=== PATIENT | male | born 1970 | race Caucasian/White ===

== ENCOUNTER 2017-03-10 15:54 | Emergency (ER) | payer BC ==
[2017-03-10 16:01] VITALS: BP 141/81
--- NOTE | 2017-03-10 16:23 | UC ---
Respiratory Complaint HPI - HPI Summary HPI Summary: increaed cough over the last few days. no fever or other symtpoms, does have seasonal allergies this time of year and has been taking claritin - History of Current Complaint Chief Complaint: UCRespiratory Stated Complaint: COUGH Time Seen by Provider: 03/10/17 16:20 Hx Obtained From: Patient Onset/Duration: Sudden Onset, Lasting Days Timing: Constant Severity Initially: Mild Severity Currently: Moderate Character: Cough: Nonproductive Aggravating Factors: Allergens, Exertion, Deep Breaths Alleviating Factors: Nothing Associated Signs And Symptoms: Positive: Wheezing - Allergies/Home Medications Allergies/Adverse Reactions: Allergies Allergy/AdvReac Type Severity Reaction Status Date / Time No Known Allergies Allergy Verified 03/10/17 16:00 Home Medications: Home Medications Loratadine [Claritin 10 MG CAP] 10 mg PO DAILY 03/10/17 [History Confirmed 03/10] PMH/Surg Hx/FS Hx/Imm Hx Previously Healthy: Yes - Surgical History Surgical History: None - Family History Known Family History: Positive: Cardiac Disease, Hypertension, Diabetes - Social History Alcohol Use: None Substance Use Type: None Smoking Status (MU): Never Smoked Tobacco Have You Smoked in the Last Year: No - Immunization History Most Recent Influenza Vaccination: no Review of Systems Constitutional: Negative Skin: Negative Eyes: Negative ENT: Negative Respiratory: Shortness Of Breath, Cough Cardiovascular: Negative Gastrointestinal: Negative Genitourinary: Negative Motor: Negative Neurovascular: Negative Musculoskeletal: Negative Neurological: Negative Psychological: Negative Is Patient Immunocompromised?: No All Other Systems Reviewed And Are Negative: Yes Physical Exam Triage Information Reviewed: Yes Appearance: Well-Appearing, Well-Nourished, Pain Distress Vital Signs: Initial Vital Signs Temp 98.9 F 03/10/17 15:57 Pulse 56 03/10/17 15:57 Resp 18 03/10/17 15:57 BP 141/81 03/10/17 15:57 Pulse Ox 97 03/10/17 15:57 Vital Signs Reviewed: Yes Eye Exam: Normal Eyes: Positive: Conjunctiva Clear ENT: Positive: Hearing grossly normal, Pharynx normal, TMs normal Dental Exam: Normal Neck exam: Normal Neck: Positive: Supple, Nontender, No Lymphadenopathy Respiratory Exam: Normal Respiratory: Positive: Chest non-tender, Normal breath sounds, No respiratory distress, No accessory muscle use, Wheezing, Inspiration Cardiovascular Exam: Normal Cardiovascular: Positive: RRR, No Murmur, Pulses Normal Abdominal Exam: Normal Abdomen Description: Positive: Nontender, No Organomegaly, Soft Bowel Sounds: Positive: Present Musculoskeletal Exam: Normal Musculoskeletal: Positive: Strength Intact, ROM Intact, No Edema Neurological Exam: Normal Neurological: Positive: Alert, Muscle Tone Normal Psychological Exam: Normal Skin Exam: Normal UC Diagnostic Evaluation - Laboratory O2 Sat by Pulse Oximetry: 97 Respiratory Course/Dx - Course Course Of Treatment: hx obtained, exam performed ,meds reviewed, treated for bronchitis - Differential Dx/Diagnosis Differential Diagnosis/HQI/PQRI: Asthma, Bronchitis, Sinusitis Provider Diagnoses: Bronchitis. seasonal allergies Discharge - Discharge Plan Condition: Stable Disposition: HOME Prescriptions: Albuterol HFA INHALER* [Ventolin HFA Inhaler*] 2 puff INH Q4H PRN #1 mdi PRN Reason: Cough predniSONE TAB* [Deltasone TAB*] 40 mg PO DAILY #14 tab Patient Education Materials: Acute Bronchitis (ED) Referrals: Alta Powers MD [Primary Care Provider] - Additional Instructions: 1. continue with the claritin 2. Take the other medications as prescribed. 3. Increase your fluid intake and get rest.
== END 2017-03-10 16:28 | disposition home or self-care (01) ==
LOC: UCCORT 15:54
DX: J40 Bronchitis, not specified as acute or chronic (principal); J30.2 Other seasonal allergic rhinitis
CPT/HCPCS: 99212; G0463

== ENCOUNTER 2018-03-11 16:55 | Emergency (ER) | payer BC ==
[2018-03-11 17:57] VITALS: BP 135/86
--- NOTE | 2018-03-11 19:15 | UC ---
Back Pain HPI - HPI Summary HPI Summary: 47-year-old male presents with a three-week history of left lower back pain that started after exercising at gym. States pain was initially a throbbing but is become more dull. Occasionally has sharp shooting pains that radiate down his left leg to the level of the knee. Worsens with extended sitting or standing. Denies fevers, chills, rash, abdominal pain, flank pain, nausea, vomiting, dysuria, frequency, urgency, hematuria, numbness, tingling, weakness of lower extremity, or loss of bowel or bladder control. - History of Current Complaint Chief Complaint: UCBackPain Stated Complaint: LOWER LEFT BACK PAIN Time Seen by Provider: 03/11/18 18:26 Hx Obtained From: Patient Onset/Duration: Gradual Onset, Lasting Weeks - 3 Timing: Constant - dull ache left lower back, Intermittent - sharp shooting pain down left leg Severity Initially: Moderate Severity Currently: Moderate - Sharpshooting pain Pain Intensity: 7 Character: Dull Aggravating Factor(s): Walking, Other - sitting Alleviating Factor(s): Rest Associated Signs And Symptoms: Negative: Fever, Weakness, Numbness, Tingling, Abdominal Pain, Flank Pain, Bladder Incontinence, Bowel Incontinence - Allergies/Home Medications Allergies/Adverse Reactions: Allergies Allergy/AdvReac Type Severity Reaction Status Date / Time No Known Allergies Allergy Verified 03/11/18 17:48 PMH/Surg Hx/FS Hx/Imm Hx Previously Healthy: Yes - denies significant past medical history - Surgical History Surgical History: None - Family History Known Family History: Positive: Cardiac Disease, Hypertension, Diabetes - Social History Occupation: Employed Full-time Lives: With Family Alcohol Use: Occasionally Alcohol Amount: 1/week Substance Use Type: None Smoking Status (MU): Never Smoked Tobacco Have You Smoked in the Last Year: No - Immunization History Most Recent Influenza Vaccination: no Most Recent Tetanus Shot: UTD Review of Systems Constitutional: Negative Skin: Negative Respiratory: Negative Cardiovascular: Negative Gastrointestinal: Negative Genitourinary: Negative Motor: Negative Neurovascular: Negative Musculoskeletal: Other: - See history of present illness Neurological: Negative Is Patient Immunocompromised?: No All Other Systems Reviewed And Are Negative: Yes Physical Exam Triage Information Reviewed: Yes Appearance: Well-Appearing, No Pain Distress, Well-Nourished Vital Signs: Initial Vital Signs Temp 97.1 F 03/11/18 17:49 Pulse 64 03/11/18 17:49 Resp 16 03/11/18 17:49 BP 135/86 03/11/18 17:49 Pulse Ox 97 03/11/18 17:49 Vital Signs Reviewed: Yes Respiratory: Positive: Lungs clear, Normal breath sounds, No respiratory distress Cardiovascular: Positive: RRR, No Murmur Abdomen Description: Positive: Nontender, No Organomegaly, Soft. Negative: CVA Tenderness (R), CVA Tenderness (L) Bowel Sounds: Positive: Present Musculoskeletal: Positive: Strength Intact, Other: - Soft tissue tenderness left lumbar back. No tenderness over the spinous processes the lumbar back. Positive straight leg test left. Gait steady. Neurological: Positive: Alert, Muscle Tone Normal, Other: - Sensation intact Skin Exam: Normal Back Pain Course/Dx - Course Course Of Treatment: 47 year old male with 3 week history of left lower back pain with occasional radiation down left leg. Exam consistent with a LBP with radiculopathy left lower extremity. Recommend conservative treatment with NSAIDs , heat, and back exercises. Referral to PT provided. Patient verbalizes understanding and agrees with POC. - Differential Dx/Diagnosis Differential Diagnosis/HQI/PQRI: Herniated Disc, Strain Provider Diagnoses: left lower back pain with sciatica Discharge - Sign-Out/Discharge Documenting (check all that apply): Patient Departure All imaging exams completed and their final reports reviewed: No Studies - Discharge Plan Condition: Stable Disposition: HOME Prescriptions: Naproxen [Naproxen 500 mg tab] 500 mg PO BID #30 tablet. Patient Education Materials: Sciatica (ED), Lower Back Exercises (ED) Referrals: Alta Powers MD [Primary Care Provider] - 2 Weeks (If no improvement in symptoms.) Additional Instructions: Take naproxen 1 tablet twice a day with food for the next 7 days. After 7 days he may take 1 tablet twice a day as needed for pain. Continue use a heating pad to the affected area for 15-20 minutes 3-4 times a day. You been given some lower back exercises to use at home to help stretch and strength in the lower back. I also provided she with a referral to physical therapy for evaluation and treatment. Follow-up with your primary care provider in 2 weeks if symptoms do not improve. Seek immediate medical attention if he develops fever greater than 100.5 F, have severe abdominal pain, persistent vomiting, numbness, tingling, or weakness of your leg(s), or you lose control of her bowel or bladder. - Billing Disposition and Condition Condition: STABLE Disposition: Home
== END 2018-03-11 19:20 | disposition home or self-care (01) ==
LOC: UCCORT 16:55
DX: M54.32 Sciatica, left side (principal)
CPT/HCPCS: 99212; G0463

== ENCOUNTER 2019-04-25 07:02 | Emergency (ER) | payer BC ==
--- OUTSIDE RECORDS SUMMARY | 2019-04-25 07:11 | XMS REPORT | Continuity of Care Document ---
:1970 External Reference #:[id number] Author Name Alta Powers MD Address [address] [place] [id number] Problems Active Problems Provider Date Pure hypercholesterolemia Alta Powers MD Onset: 10/10/2005 Impaired fasting glycaemia Alta Powers MD Onset: 11/19/2018 Social History Type Date Description Comments Sex Unknown ETOH Use 04/14/2019 Occasionally consumes about 3 drinks per alcohol month Tobacco Use Start: Unknown Patient has never smoked Smoking Status Reviewed: 04/14/19 Patient has never smoked Allergies, Adverse Reactions, Alerts Description No Known Drug Allergies Medications Description No Active Medications Immunizations CPT Code Status Date Vaccine Reaction Lot # [id number] Given 04/02/2018 Flu Vaccine NOS 15777 Given 03/22/2017 Afluria Or Fluvirin Flu Vac Intramuscular 05235 Given 03/22/2012 Afluria Or Fluvirin Flu Vac Intramuscular 41212 Given 05/13/2011 Tdap (Adacel) Ages 7 And Above VIS DATE 05/09/08 Only Vital Signs Date Vital Result Comment 04/14/2019 8:37am Weight 178.00 lb Heart Rate 66 /min BP Systolic 120 mmHg BP Diastolic 80 mmHg Respiratory Rate 18 /min Height 65.5 inches 5'5.50" BMI (Body Mass Index) 29.2 kg/m2 11/19/2018 8:07am Weight 182.12 lb Heart Rate 68 /min BP Systolic 130 mmHg BP Diastolic 86 mmHg Respiratory Rate 18 /min Height 65.5 inches 5'5.50" SAFABIAN 11/19/18 BMI (Body Mass Index) 29.8 kg/m2 Results Test Date Facility Test Result H/L Range Note Lipid Treatment 04/08/2019 [facility] Cholesterol 251 mg/dL High 50-199 1 Triglycerides 149 mg/dL 30-200 HDL 40 mg/dL 29-71 2 Chol/ HDL Ratio 6.3 ratio 4.0-6.7 VLDL 30 mg/dL High 2-29 LDL (Calc) 181 mg/dL High 20-99 3 Alt 23 U/L 3-42 Ast 14 U/L 8-42 Basic (BMP) 04/08/2019 [facility] Sodium 139 mmol/L 135-146 4 Potassium 4.4 mmol/L 3.5-5.2 Chloride# 104 mmol/L 97-110 5 Carbon Dioxide 27 mmol/L 24-34 Glucose 99 mg/dL 70-105 BUN 19 mg/dL 6-26 Creatinine 1.0 mg/dL 0.5-1.4 Calcium 9.5 mg/dL 8.5-10.5 6 Female Egfr 64 >60 7 Male Egfr 85 >60 8 Anion Gap 8 mmol/L 5-15 9 Hemoglobin A1c 04/08/2019 [facility] Hemoglobin A1c 5.9 % 4.1-5.9 Estimated Average Glucose Calc 123 mg/dL 71-140 Laboratory test finding 11/12/2018 [facility] PSA 0.890 ng/mL 0.000-4.000 10, 11 CBC With Auto Diff 11/12/2018 [facility] WBC 4.9 K/uL 4.1-11.0 RBC 5.00 M/uL 4.60-6.10 Hemoglobin 14.3 gm/dL 13.5-18.0 Hematocrit 42.2 % 41.0-53.0 MCV 84.4 fL 80.0-97.0 MCH 28.6 pg 27.0-32.0 MCHC 33.9 g/dL 32.0-36.0 RDW 13.5 % 11.5-14.5 PLT Count 220 K/ul 140-400 MPV 7.8 FL 7.1-10.7 Neutrophil 52.5 % 35.0-75.0 Lymphocyte 39.6 % 16.0-52.0 Monocyte 5.6 % 2.0-10.0 Eosinophil 1.8 % 0.0-5.0 Basophil 0.5 % 0.0-4.0 Abs Neutrophils 2.6 K/uL 2.1-8.0 Abs Lymphocytes 1.9 K/uL 0.8-5.5 Abs Monocytes 0.3 K/uL 0.1-1.0 Abs Eosinophils 0.1 K/uL 0.0-0.5 Abs Basophils 0.0 K/uL 0.0-0.3 Comprehensive Metabolic (CMP) 11/12/2018 [facility] Sodium 144 mmol/L 135- 146 12 Potassium 4.3 mmol/L 3.5-5.2 Chloride# 106 mmol/L 97-110 13 Carbon Dioxide 28 mmol/L 24-34 Calcium 9.6 mg/dL 8.5-10.5 14 Glucose 109 mg/dL High 70-105 BUN 16 mg/dL 6-26 Creatinine 1.0 mg/dL 0.5-1.4 Total Protein 6.6 g/dL 6.0-8.0 Albumin 4.3 g/dL 3.6-4.9 Globulin 2.3 g/dL 2.0-3.5 A/G Ratio 1.9 Ratio 1.0-2.2 Total Bilirubin 0.5 mg/dL 0.1-1.3 Alkaline Phosphatase 49 U/L 24-140 Alt 25 U/L 3-42 Ast 15 U/L 8-42 Anion Gap 10 mmol/L 5-15 15 Female Egfr 68 >60 16 Male Egfr 91 >60 17 Laboratory test finding 11/12/2018 [facility] TSH 1.32 uIU/mL 0.35-4.94 Lipid 11/12/2018 [facility] Cholesterol 267 mg/dL High 50-199 Triglycerides 113 mg/dL 30-200 HDL 39 mg/dL 29-71 18 Chol/ HDL Ratio 6.9 ratio High 4.0-6.7 VLDL 23 mg/dL 2-29 LDL (Calc) 206 mg/dL High 20-99 19 1 3 mos 2 Per NCEP ATP III Guidelines: Results lower than 40 mg/dL are suggestive of increased risk for coronary artery disease. Results > or = to 60 mg/dL are considered a negative risk factor. 3 Per NCEP ATP III Guidelines: Normal Population <130 Patients with medical conditions: CHD/DM Optimal: <100 Borderline high: 130-159 High: 160-189 Very high: >189 4 Updated reference range on new analyzer 5 Updated reference range on new analyzer 6 Updated reference range 10-20-2018 7 Concerning GFR Guidelines for Americans: Normal function or mild renal disease, if clinically at risk: >/= 60 mL/min Moderately decreased: 30-59 Severely decreased: 15-29 Renal failure: <15 There is reduced accuracy above 60ml/min/1.73 m squared, but the numeric value may be clinically useful in the near 60 range 8 Concerning GFR Guidelines: Normal function or mild renal disease, if clinically at risk: >/= 60 mL/min Moderately decreased: 30-59 Severely decreased: 15-29 Renal failure: <15 There is reduced accuracy above 60ml/min/1.73 m squared, but the numeric value may be clinically useful in the near 60 range Glomerular Filtration Rate (GFR) is estimated based on the CKD-EPI equation, which assumes a steady state for creatinine as recommended by the National Kidney Disease Education Program in conjunction with the National Institutes of Health and the National Kidney Foundation. Clinical conditions in which it may be necessary to measure GFR by using clearance methods include extremes of age and body size, severe malnutrition or obesity, diseases of skeletal muscle, paraplegia or quadriplegia, vegetarian diet, rapidly changing kidney function, and calculation of the dose of potentially toxic drugs that are excreted by the kidneys. 9 Updated Reference Range 10 1 year 11 Beginning 08/17/06 PSA values assayed at [facility] uses chemiluminescence methodology manufactured by [employer] ([employer]) for use on the DXI analyzer. Values obtained with different assay methods or kits can not be used interchangeably. Serum PSA measurement is not an absolute test for malignancy. The PSA value should be used in conjunction with information available from clinical evaluation and other diagnostic procedures. 12 Updated reference range on new analyzer 13 Updated reference range on new analyzer 14 Updated reference range 10-20-2018 15 Updated Reference Range 16 Concerning GFR Guidelines for Americans: Normal function or mild renal disease, if clinically at risk: >/= 60 mL/min Moderately decreased: 30-59 Severely decreased: 15-29 Renal failure: <15 There is reduced accuracy above 60ml/min/1.73 m squared, but the numeric value may be clinically useful in the near 60 range 17 Concerning GFR Guidelines: Normal function or mild renal disease, if clinically at risk: >/= 60 mL/min Moderately decreased: 30-59 Severely decreased: 15-29 Renal failure: <15 There is reduced accuracy above 60ml/min/1.73 m squared, but the numeric value may be clinically useful in the near 60 range Glomerular Filtration Rate (GFR) is estimated based on the CKD-EPI equation, which assumes a steady state for creatinine as recommended by the National Kidney Disease Education Program in conjunction with the National Institutes of Health and the National Kidney Foundation. Clinical conditions in which it may be necessary to measure GFR by using clearance methods include extremes of age and body size, severe malnutrition or obesity, diseases of skeletal muscle, paraplegia or quadriplegia, vegetarian diet, rapidly changing kidney function, and calculation of the dose of potentially toxic drugs that are excreted by the kidneys. 18 Per NCEP ATP III Guidelines: Results lower than 40 mg/dL are suggestive of increased risk for coronary artery disease. Results > or = to 60 mg/dL are considered a negative risk factor. 19 Per NCEP ATP III Guidelines: Normal Population <130 Patients with medical conditions: CHD/DM Optimal: <100 Borderline high: 130-159 High: 160-189 Very high: >189 Procedures Date Code Description Status 06/22/2005 24259734 Colonoscopy Completed Medical Devices Description No Information Available Encounters Type Date Location Provider Dx Diagnosis Office Visit 11/19/2018 [facility] Alta Powers MD Z00.00 Encntr for general 8:15a adult medical exam w/o abnormal findings Z13.31 Encounter for screening for depression E78.00 Pure hypercholesterolemia, unspecified R73.01 Impaired fasting glucose Z68.29 Body mass index (BMI) 29.0-29.9, adult Assessments Date Code Description Provider 04/14/2019 E78.00 Pure hypercholesterolemia Alta Powers MD 04/14/2019 R73.01 Impaired fasting glucose Alta Powers MD 04/14/2019 Z12.11 Encounter for screening for malignant neoplasm Alta Powers MD of colon 04/14/2019 Z68.29 Body mass index (BMI) 29.0-29.9, adult Alta Powers MD 04/08/2019 E78.00 Pure hypercholesterolemia, unspecified Alta Powers MD 04/08/2019 E78.00 Pure hypercholesterolemia, unspecified Schedule, Laboratory 04/08/2019 R73.01 Impaired fasting glucose Alta Powers MD 04/08/2019 R73.01 Impaired fasting glucose Schedule, Laboratory 04/08/2019 E78.00 Pure hypercholesterolemia, unspecified [facility] 04/08/2019 R73.01 Impaired fasting glucose [facility] 11/19/2018 Z00.00 Encounter for general adult medical Alta Powers MD examination without abno 11/19/2018 Z13.31 Encounter for screening for depression Alta Powers MD 11/19/2018 E78.00 Pure hypercholesterolemia Alta Powers MD 11/19/2018 R73.01 Impaired fasting glucose Alta Powers MD 11/19/2018 Z68.29 Body mass index (BMI) 29.0-29.9, adult Alta Powers MD 11/12/2018 R39.11 Hesitancy of micturition Alta Powers MD 11/12/2018 R39.11 Hesitancy of micturition Schedule, Laboratory 11/12/2018 R03.0 Elevated blood-pressure reading, without Alta Powers MD diagnosis of hypertension 11/12/2018 R03.0 Elevated blood-pressure reading, w/o diagnosis Schedule, Laboratory of htn 11/12/2018 E78.00 Pure hypercholesterolemia, unspecified Alta Powers MD 11/12/2018 E78.00 Pure hypercholesterolemia, unspecified Schedule, Laboratory 11/12/2018 R39.11 Hesitancy of micturition [facility] 11/12/2018 R03.0 Elevated blood-pressure reading, w/o diagnosis [facility] of htn 11/12/2018 E78.00 Pure hypercholesterolemia, unspecified [facility] Plan of Treatment Future Appointment(s):11/25/2019 7:35 am - Schedule, Laboratory at [facility]2019 2:00 pm - Alta Powers MD at [facility]04/14/2019 - Alta Powers MDE78.00 Pure hypercholesterolemiaNew Labs:Lipid Treatment, Scheduled: 11/25/19Comments: Hyperlipidemia is diet controlled, improved but LDL is still elevated at 181. HDL is 40. suspect genetic predisposition to hyperlipidemia - discussed with patient . Liver enzymes are normal. keep working on healthy lifestyle - medication not needed yet.Follow up:After 11/19 for annual physical check labs prior.R73.01 Impaired fasting glucoseNew Labs:Basic (BMP), Scheduled: Hemoglobin A1c, Scheduled: 11/25/19Comments:He is in the prediabetic range. He has tendency to have an elevated blood sugar. HbA1c is at 5.9.He was educated about HbA1c range. Fasting blood sugar is 66. Kidney function is normal. Encouraged to continue to exercise daily and eat healthy diet. He was advised to cut back on sugar, flour, butter, fried foods, and fatty foods.Z12.11 Encounter for screening for malignant neoplasm of colonComments:We will order colonoscopy on this patient. The patient will be referred to Dr. Black as the patient is due for colonoscopy.Referral:Liborio Black, [id number] Body mass index (BMI) 29.0-29.9, adultComments:The BMI is the ratio between height and weight. Goal for a person under age 65 is between 18.5 and 25. You are overweight. Work on healthy lifestyle, with regular exercise (20 min daily will help) and eat a healthy diet. Formal diet plans work best. Functional Status Description No Information Available Mental Status Description No Information Available Referrals Refer to Reason for Referral Status Appt Date Liborio Black due for screening colonscopy Created [address] [place] [address] [phone]
[2019-04-25 07:15] VITALS: BP 133/85
--- NOTE | 2019-04-25 07:21 | UC ---
Skin Complaint HPI - HPI Summary HPI Summary: 49 yo healthy man, removed tick from right arm this morning. Was in the cool yesterday, tick could have been attached longer than 24 hours. No hx of Lyme disease. - History of Current Complaint Chief Complaint: UCSkin Time Seen by Provider: 04/25/19 07:15 Stated Complaint: RIGHT ARM SKIN - TICK BITE Hx Obtained From: Patient Onset/Duration: Sudden Onset, Lasting Hours Timing: Constant Onset Severity: Mild Current Severity: None Pain Intensity: 0 Location: Discrete Character: Redness - about 2.5 cm of eryhema at site. Alleviating Factor(s): Nothing Associated Signs & Symptoms: Positive: Negative Related History: Insect Bite/Sting - Allergy/Home Medications Allergies/Adverse Reactions: Allergies Allergy/AdvReac Type Severity Reaction Status Date / Time No Known Allergies Allergy Verified 04/25/19 07:12 Home Medications: Home Medications Loratadine [Claritin] 10 mg PO DAILY 04/25/19 [History Confirmed 04/25/19] PMH/Surg Hx/FS Hx/Imm Hx Previously Healthy: Yes - Surgical History Surgical History: None - Family History Known Family History: Positive: Cardiac Disease, Hypertension, Diabetes, Non- Contributory - Social History Occupation: Employed Full-time Lives: With Family Alcohol Use: Occasionally Alcohol Amount: 1/week Substance Use Type: None Smoking Status (MU): Never Smoked Tobacco Have You Smoked in the Last Year: No - Immunization History Most Recent Influenza Vaccination: no Most Recent Tetanus Shot: UTD Review of Systems All Other Systems Reviewed And Are Negative: Yes Constitutional: Positive: Negative Skin: Positive: Other - upper medial right arm--site of bite--with erythema ENT: Positive: Negative Respiratory: Positive: Negative Cardiovascular: Positive: Negative Motor: Positive: Negative Neurovascular: Positive: Negative Musculoskeletal: Positive: Negative Neurological: Positive: Negative Psychological: Positive: Negative Is Patient Immunocompromised?: No Physical Exam Triage Information Reviewed: Yes Appearance: Well-Appearing, No Pain Distress Vital Signs: Initial Vital Signs Temp 97.3 F 04/25/19 07:13 Pulse 66 04/25/19 07:13 Resp 16 04/25/19 07:13 BP 133/85 04/25/19 07:13 Pulse Ox 100 04/25/19 07:13 Vital Signs Reviewed: Yes Eye Exam: Normal ENT: Positive: Normal ENT inspection Respiratory Exam: Normal Respiratory: Positive: Lungs clear, Normal breath sounds Cardiovascular Exam: Normal Cardiovascular: Positive: RRR, No Murmur Skin Exam: Other - 3 cm erythema medial upper right arm just superior to the elbow. Course/Dx - Course Course Of Treatment: single dose doxycycline for prevention of Lyme disease. - Differential Diagnoses - Skin Complaint Differential Diagnoses: Other - tick bite - Diagnoses Provider Diagnosis: Tick bite Discharge ED - Sign-Out/Discharge Documenting (check all that apply): Patient Departure All imaging exams completed and their final reports reviewed: No Studies - Discharge Plan Condition: Good Disposition: HOME Prescriptions: DOXYcycline CAP(*) [DOXYcycline 100MG CAP(*)] 200 mg PO DAILY #2 cap Patient Education Materials: Tick Bite (ED) Referrals: Alta Powers MD [Primary Care Provider] - Additional Instructions: You have been prescribed a single dose of doxycycline for Lyme disease prevention. This can cause gut cramping and loose stools, but is usually well tolerated. In the next weeks, monitor for rash, fever and joint pains which are sings of early Lyme disease. - Billing Disposition and Condition Condition: GOOD Disposition: Home
== END 2019-04-25 07:31 | disposition home or self-care (01) ==
LOC: UCCORT 07:02
DX: S40.861A Insect bite (nonvenomous) of right upper arm, initial encounter (principal); W57.XXXA Bitten or stung by nonvenomous insect and other nonvenomous arthropods, initial encounter; Y92.9 Unspecified place or not applicable
CPT/HCPCS: 99212; G0463

== ENCOUNTER 2019-08-20 17:35 | Emergency (ER) | payer BC ==
--- NOTE | 2019-08-20 18:10 | UC ---
Respiratory Complaint HPI - HPI Summary HPI Summary: COUGH: X2WKS NONPRODUCTIVE. NO SICK CONTACTS. denies fever or sob. LOWER BACK: denies injury. occured 3 wks. ago and has tried heat, ice, stretching w/ no relief. denies tingling/numbness. - History of Current Complaint Chief Complaint: UCRespiratory Stated Complaint: COUGH/LOW BACK PAIN Time Seen by Provider: 08/20/19 18:09 Hx Obtained From: Patient - Risk Factors Cardiac Risk Factors: Negative - Allergies/Home Medications Allergies/Adverse Reactions: Allergies Allergy/AdvReac Type Severity Reaction Status Date / Time No Known Allergies Allergy Verified 08/20/19 18:12 Home Medications: Home Medications Albuterol HFA INHALER* [Ventolin HFA Inhaler*] 2 puff INH Q4H PRN #1 mdi [Rx] Cyclobenzaprine (NF) [Cyclobenzaprine 5 MG (NF)] 5 mg PO TID PRN 3 Days #9 tab 08/20/19 [Rx] PMH/Surg Hx/FS Hx/Imm Hx - Additional Past Medical History Additional PMH: no chronic illness Previously Healthy: Yes - Surgical History Surgical History: None - Family History Known Family History: Positive: Cardiac Disease, Hypertension, Diabetes, Non- Contributory - Social History Alcohol Use: Occasionally Alcohol Amount: 1/week Substance Use Type: None Smoking Status (MU): Never Smoked Tobacco Have You Smoked in the Last Year: No - Immunization History Most Recent Influenza Vaccination: no Most Recent Tetanus Shot: UTD Review of Systems All Other Systems Reviewed And Are Negative: Yes Constitutional: Negative: Fever ENT: Negative: Sore Throat, Sinus Congestion Respiratory: Positive: Cough. Negative: Shortness Of Breath Musculoskeletal: Positive: Arthralgia - back pain. Negative: Myalgia Neurological/Mental Status: Negative: Headache, Paresthesia, Numbness Physical Exam Triage Information Reviewed: Yes Appearance: Well-Appearing Vital Signs Reviewed: Yes ENT: Positive: Pharynx normal, TMs normal, Uvula midline Respiratory: Positive: Lungs clear, Other: - coughs upon inhalation. Negative: Crackles, Rhonchi, Stridor, Wheezing Cardiovascular Exam: Normal Musculoskeletal: Positive: ROM Intact - at lower back, No Edema, Other: - able to get up out of chair and walk in a quick manner. good ROM at lower back. Neurological: Positive: Alert, Muscle Tone Normal Skin: Negative: Rashes Diagnostics - Radiology No standard instances Radiology Interpretation Completed By: ED Physician Summary of Radiographic Findings: No obvious fx. Respiratory Course/Dx - Course Course Of Treatment: BRONCHITIS: acute cough w/ no abnormal lung sounds and good O2. viral etiology. he prefers albuterol. BACK PAIn: although acute we obtained imaging due to no improvement after conservative measures such as heat/ice, stretching. on prelim reading suspect arthritic changes but not definitive until final read in AM. exam was unremarkable. will tx for possible lower back spasms. - Differential Dx/Diagnosis Differential Diagnosis/HQI/PQRI: Bronchitis, Lower Resp Infection, Other Provider Diagnosis: Bronchitis, Lower back pain Discharge ED - Sign-Out/Discharge Documenting (check all that apply): Patient Departure All imaging exams completed and their final reports reviewed: No - Discharge Plan Condition: Good Disposition: HOME Prescriptions: Albuterol HFA INHALER* [Ventolin HFA Inhaler*] 2 puff INH Q4H PRN #1 mdi PRN Reason: Cough Cyclobenzaprine (NF) [Cyclobenzaprine 5 MG (NF)] 5 mg PO TID PRN 3 Days #9 tab PRN Reason: Spasms Patient Education Materials: Acute Bronchitis (ED) Referrals: Alta Powers MD [Primary Care Provider] - Additional Instructions: Please follow up with your primary care provider if your lower back continues to cause pain. - Billing Disposition and Condition Condition: GOOD Disposition: Home - Attestation Statements Provider Attestation: I was available for consult. This patient was seen by the MADELYN. The patient was not presented to , seen by or examined by nd -Jie Stevens MD
[2019-08-20 18:11] VITALS: BP 135/81
--- NOTE | 2019-08-21 08:55 | UC ---
- Progress Note Progress Note: X-ray report reviewed, no fracture nor concerning acute findings. Was instructed to f/u with PCP if sx persist. Passenger Representative: Cody Simons, ([id number]) Benefits Consultant: SELENA (SELENA) Report Date: 08/21/2019 08:50:00 Report Status: Final Start of Report Content Patient Name: MOISES JACQUES Medical Record#: [id number] Ordering Physician: Shi BARRON Acct.#: [id number] : 1969 Age: 49 Sex: M Location: [facility] Exam Date: 08/20/191828 ADM Status: [facility] ER Order Information: SP LUMBARSACRAL 4+ VWS Accession Number: [id number] CPT: 65254 INDICATION: Low back pain x1 month COMPARISON: None. TECHNIQUE: 5 views of the lumbar spine were obtained. FINDINGS: On the AP and lateral views the vertebral bodies are anatomically aligned. There is mild loss of intervertebral disc height at the lower lumbar levels. At L5/S1 there is a pars interarticularis defect with an associated slight grade 1 degree of anterolisthesis. IMPRESSION: 1. There appears to be at L5/S1 pars interarticularis defect with a slight degree of L5 over S1 anterolisthesis. 2. Mild degenerative disc disease in the lower lumbar spine. R0 Preliminary Imaging Read R0 < Electronically signed by Cody Simons MD in OV> 08/21/19845 Dictated By: Cody Simons MD Dictated Date/Time: 08/21/19829 Transcribed Date/Time: 829 Copy to: CC:Alta Powers MD; Jie Stevens MD; Shi BARRON Imaging - [facility] Imaging - [facility] Imaging - [facility] [address] [address] ph [phone]) ph ([phone]) ph ([phone]) End of Report Content ========= Course/Dx - Diagnoses Provider Diagnoses: Bronchitis, Lower back pain Discharge ED - Sign-Out/Discharge Documenting (check all that apply): Post-Discharge Follow Up All imaging exams completed and their final reports reviewed: Yes - Discharge Plan Condition: Good Disposition: HOME Prescriptions: Albuterol HFA INHALER* [Ventolin HFA Inhaler*] 2 puff INH Q4H PRN #1 mdi PRN Reason: Cough Cyclobenzaprine (NF) [Cyclobenzaprine 5 MG (NF)] 5 mg PO TID PRN 3 Days #9 tab PRN Reason: Spasms Patient Education Materials: Acute Bronchitis (ED) Referrals: Alta Powers MD [Primary Care Provider] - Additional Instructions: Please follow up with your primary care provider if your lower back continues to cause pain. - Billing Disposition and Condition Condition: GOOD Disposition: Home
== END 2019-08-20 19:00 | disposition home or self-care (01) ==
LOC: UCCORT 17:35
DX: M54.5 Low back pain (principal); J40 Bronchitis, not specified as acute or chronic; M43.17 Spondylolisthesis, lumbosacral region; M51.36 Other intervertebral disc degeneration, lumbar region
CPT/HCPCS: 72110; 99212; G0463